=== PATIENT | female | born 1970 | race Caucasian/White ===

== ENCOUNTER → 2016-04-18 | Outpatient (CLI) | payer BC ==
--- NOTE | 2016-04-18 13:40 | MA ---
Diagnostic Digital Mammogram bilateral Breast Clinical Indications: Palpable nodule lower inner right breast. The patient is due for bilateral mamm ogram Technique: Routine CC and mediolateral oblique views were obtained of each breast. Compression was ob tained in CC, mediolateral oblique, and 90-degree lateral views of the right breast. This examination is processed by the [employer] computer-aided detection system. Comparison: November 25, 2012; April 15, 2011; May 16, 2008 Breast density: D; The breasts are extremely dense, which lowers the sensitivity of mammography. Findings: CAD was reviewed. A marker was placed over area palpable concern inframedial right breast. This appears to correspond w ith a dominant mass with partial obscured margins and measures about 4 cm. This probably represents a new cyst. The patient on previous ultrasounds had underlying fibrocystic condition on the right. The re may be additional smaller cysts within the dense breast tissue bilaterally that are partially obsc ured. No new calcifications are seen or axillary lymphadenopathy. Impression: Dominant nodule inframedial right breast that corresponds with palpable abnormality. Subs equent ultrasound was performed for further characterization. Otherwise, no significant change since prior study. BI-RADS 0
--- NOTE | 2016-04-18 14:05 | US ---
Ultrasound right breast 1324 hours. History: New palpable nodule lower inner quadrant right breast. Findings: Ultrasound over area palpable nodule 2 o'clock position right breast about 4 cm from the ni pple confirms a dominant simple cyst that measures 38 x 37 x 26 mm. There is incidental internal debr is. Additional smaller cysts are noted elsewhere within the dense breast parenchymal tissue. No solid mass is evident. Impression: Fibrocystic condition right breast with dominant cyst that corresponds with area of palpa ble concern. BI-RADS 2 Routine annual mammographic followup recommended. The results of this study were reviewed with the patient.
== END ==
LOC: BMCIMAGING 12:40
PROVIDERS: ATTEND Obstetrics & Gynecology
DX: N60.01 Solitary cyst of right breast (principal)
CPT/HCPCS: G0204

== ENCOUNTER → 2016-05-23 | Outpatient (CLI) | payer BC ==
--- NOTE | 2016-05-23 15:21 | US ---
Ultrasound Pelvis Complete (Transabdominal and Endovaginal) Including Duplex/Doppler Imaging History: D25.0 SUBMUCOUS LEIOMYOMA OF UTERUS- Comparison: Ultrasound December 2015. Technique: Transabdominal and endovaginal ultrasound images were obtained. Endovaginal images obtaine d for better evaluation of the uterine myometrium and adnexa. Duplex/Doppler imaging of adnexa. Findings: Uterus measures 10 x 8 x 8 cm. Endometrial thickness is not well visualized. In the fundus of the uterus, there is a heterogenous solid 6.8 x 5.8 x 6.1 cm mass previously measuring 6.7 x 5.7 x 6.3 cm without significant change in size. This causes probable mass effect and obliteration of the endometrium which is not well visualized. Right ovary measures 3.1 x 2.5 x 1.5 cm. Left ovary measures 2.2 x 2 x 1.9 cm. Right ovarian dominant follicle measuring 1.6 x 1.3 x 1.1 cm. No significant free fluid in the pelvis. Color Doppler flow t o both ovaries without torsion. Impression: 1. Fundal submucosal uterine leiomyoma measuring 6.8 x 5.8 x 6.1 cm without significant change in siz e. 2. Endometrium not well visualized. Consider uterine fibroid embolization or endometrial biopsy if cl inically indicated. 3. No suspicious adnexal masses or free fluid. Consider Interventional Radiology consult for uterine fibroid embolization, if clinically indicated, with Dr. Yelena Garcia at [phone].
== END ==
LOC: FIMAGING 09:49
PROVIDERS: ATTEND Obstetrics & Gynecology
DX: D25.0 Submucous leiomyoma of uterus (principal)

== ENCOUNTER → 2016-08-08 | Outpatient (CLI) | payer BC | LOC: FIMAGING 17:29 | PROVIDERS: ATTEND Midwife | DX: N93.8 Other specified abnormal uterine and vaginal bleeding (principal); D25.9 Leiomyoma of uterus, unspecified ==